=== PATIENT | female | born 1950 | race Caucasian/White ===

== ENCOUNTER 2018-09-07 11:14 | Emergency (ER) | END 2018-09-07 11:30 | disposition left against medical advice (07) ==

== ENCOUNTER 2018-09-08 06:40 | Inpatient (IN) | END 2018-09-14 18:55 | DRG 455 ==

== ENCOUNTER 2018-09-14 19:11 | Inpatient (IN) | END 2018-09-18 15:38 | disposition short-term general hospital (02) | DRG 552 ==

== ENCOUNTER 2018-09-18 16:28 | Observation (INO) | END 2018-09-21 17:04 ==

== ENCOUNTER 2018-09-21 17:15 | Inpatient (IN) | END 2018-10-01 13:30 | disposition home health service (06) | DRG 560 ==